=== PATIENT | male | born 1945 | race Caucasian/White ===

== ENCOUNTER → 2017-09-01 | Outpatient (CLI) | payer MEDICARE ==
[~2017-09-01] MED LIST: ALDACTONE 25MG25 M1 PO; ALDACTONE25 MG PO; ALEVE 220MG220 MG PO; AMITRIPTYLINE H25 M1 PO; AMOXICILLIN 8751 TAB PO; APIDRAVL SQ; ASPIRIN E.C. 8181 MG PO; AVAPRO300 M1 PO; CANA100T PO; COREG 25MG25 MG/TAB PO; COREG CR80 MG PO; COUMADIN 1MG1 MG/TAB PO; COUMADIN 6MG6 MG/TAB PO; COUMADIN6 MG PO; COZAAR100 MG PO; DIGITEK0.25 MG PO; GLUCOPHAGE XR500 MG PO; GLUCOPHAGE1000 MG PO; GLUCOTROL 5M5 MG/TAB PO; JANUVIA 100MG100 MG PO; JANUVIA100 MG PO; LEVEMIR SQ; NORCO 325 MG-51 TAB PO; NORCO 325 MG-7.1 TAB PO; ULTRAM100 MG PO
== END ==
LOC: COL.RAD 07:56
DX: I73.9 Peripheral vascular disease, unspecified (principal); Z87.891 Personal history of nicotine dependence

== ENCOUNTER → 2019-06-06 | Outpatient (CLI) | payer MEDICARE | LOC: COL.VAS 08:16 | DX: I08.1 Rheumatic disorders of both mitral and tricuspid valves (principal) ==

== ENCOUNTER 2019-07-05 06:53 | Day surgery (SDC) | payer MEDICARE ==
[~2019-07-05] VITALS: Ht 177.8 cm; Wt 104.2 kg
[2019-07-05] VITALS (17 sets, daily range): BP systolic 117–155; BP diastolic 63–87; PULSE 43–67; TEMP 98
[~2019-07-05 06:53] MED LIST changes: +COUMADIN 5MG5 MG/TAB PO; -COUMADIN 6MG6 MG/TAB PO; -GLUCOTROL 5M5 MG/TAB PO; +GLUCOTROL10 MG PO
[2019-07-05 08:04] LABS: HEMATOCRIT 37.6 % (42.0-52.0); HEMOGLOBIN 12.5 g/dl (13.5-18.0); MEAN CELL VOLUME 95 fl (80.0-100.0); MEAN CORPUSCULAR HEMOGLOBIN 32 pg (27.0-31.0); MEAN CORPUSCULAR HGB CONC 33 g/dl (33.0-37.0); MEAN PLATELET VOLUME 10.3 fl (7.4-10.4); PLATELET COUNT 199 K/mm3 (130-400); RED BLOOD COUNT 3.97 M/mm3 (4.20-5.60); REDCELL DISTRIBUTION WIDTH-CV 14.2 % (11.5-14.5)
[2019-07-05 08:12] LABS: INR 1.3 (0.8-3.0)
[2019-07-05 08:13] LABS: CALCIUM 9.3 mg/dL (8.4-10.2); CREATININE, serum 1.45 (0.66-1.25); POTASSIUM 4.8 mmol/L (3.4-5.0)
[2019-07-05 08:15] LABS: PARTIAL THROMBOPLASTIN TIME 36.5 SECONDS (26.0-37.0)
[2019-07-05] MEDS ORDERED: LIPITOR 10MG10 MG PO (08:28)
[2019-07-05] MEDS ORDERED: JARDIANCE10 PO (08:34)
[2019-07-05] MEDS ORDERED: ALDACTONE 25MG25 M1 PO (08:38)
[2019-07-05] MEDS ORDERED: SEPTRA DS 8001 TAB PO (08:39)
[2019-07-05] MEDS ORDERED: TOUJEO300 U/ML SQ (08:41)
--- NOTE | 2019-07-05 08:51 | NUR ---
Pt to procedure at this time.
--- NOTE | 2019-07-05 09:01 | NUR ---
SEE MERGE DOCUMENTATION FOR MEDICATION ADMINISTRATION TIMES AND INTRA/POST PROCEDURE SEDATION ASSESSMENTS.
--- NOTE | 2019-07-05 11:05 | NUR ---
Heparin drip started at this time.Heparin start cosigned by SKINNY Melara.This nurse called to confirm with CHRISTOPHER Marino if bolus needed.Per Ned,no bolus due to pt getting heparin during procedure.
--- NOTE | 2019-07-05 13:17 | NUR ---
Mar[place]hal, 5/325mg po x 1 dose at this time per pt requst for c/o hip pain.Per pt this is a chronic condition.Family at bedside.
--- NOTE | 2019-07-05 16:26 | NUR ---
Pt discharged via EMS.Report to CRISPIN Sandoval.Report called to Harrison Lomax by this nurse at [phone].
== END 2019-07-05 16:57 | disposition home or self-care (01) ==
LOC: COL.CAR 06:53
PROVIDERS: Internal Medicine Cardiovascular Disease; Nurse Practitioner
DX: I25.10 Atherosclerotic heart disease of native coronary artery without angina pectoris (principal); I48.0 Paroxysmal atrial fibrillation; I35.0 Nonrheumatic aortic (valve) stenosis; I27.20 Pulmonary hypertension, unspecified; E78.5 Hyperlipidemia, unspecified; E11.69 Type 2 diabetes mellitus with other specified complication; B95.7 Other staphylococcus as the cause of diseases classified elsewhere; E11.22 Type 2 diabetes mellitus with diabetic chronic kidney disease; I13.10 Hypertensive heart and chronic kidney disease without heart failure, with stage 1 through stage 4 chronic kidney disease, or unspecified chronic kidney disease; N18.3 Chronic kidney disease, stage 3 (moderate); Z79.01 Long term (current) use of anticoagulants; Z87.891 Personal history of nicotine dependence; Z79.82 Long term (current) use of aspirin; Z79.4 Long term (current) use of insulin
CPT/HCPCS: J1644; J3010; J7030; Q9967

== ENCOUNTER 2019-07-21 09:56 | Inpatient (IN) | payer MEDICARE ==
[~2019-07-21] VITALS: Ht 177.8 cm; Wt 104.2 kg
[~2019-07-21 09:56] MED LIST changes: +JARDIANCE10 PO; +LIPITOR 10MG10 MG PO; +SEPTRA DS 8001 TAB PO; +TOUJEO300 U/ML SQ
[2019-07-21 14:15] VITALS: BP 102/65; PULSE 79; TEMP 98
--- NOTE | 2019-07-21 15:33 | NUR ---
Pt leaving AMA, he and signed form, MARIANNE Schulz assisting with escourting out.
--- NOTE | 2019-07-21 17:47 | NUR ---
Pt arrived in wheelchair to unit, Poonam with pt, obtained weight at scale and this nurse donned gait belt around pt and he took a few steps with mod assist to the bed. Introduced self to pt and , mod assist for pt's legs into bed, turned bed alarm on. Proximal midline chest incision without dressing showing above collar of shirt. Turned bed alarm on, oriented pt and to call lt, tv controlls, and use of alarms on the bed and chair for safety. Asked pt about code status, he deffered to . Pt answered that he has NKDA. Pt stated his pharmacy is [facility] in [place]. OT in to see pt. MARIANNE Schulz obtained initial admission and vitals. Zeus states pt took off shoes and refused to put on gripper socks or don shoes again. Pt sat up on side of bed, setting off alarm, nurse reminded pt not to get up without calling, pt wanted to transfer to chair, went to get pt's seat cushion out of car, set up recliner with blanket, alarm, and cushion. Later, chair alarm going off, pt was attempting to amb to BR without device, was in room bringing walker to pt, this nurse was getting report on this pt from his former nurse at [facility] and cued pt to sit back down, let us help him, pt took ahold of the walker, but when this nurse got near, pt began to push walker away, pt did not have a gait belt on, so this nurse placed hand under pt's left axilla and pt spun around away from nurse, unsteady towards window seat before sitting in recliner. Nurse sat down on window seat next to pt and tried to calmly explain the rehab safety rules. Pt threated nurse if he was not left alone, however, states he is going to have an accident if he does not go to the bathroom. Nurse called to LEONARDA Boyd, walking by in the munoz for assist, Oliver attempted to assist pt with no avail. Claudia Jewelry Manager was called for assistance. Claudia spoke with pt and , concluded that pt would leave AMA and risks were explained to pt and . [facility]. Kemp [facility] and BRIAN Moreland were notified. Pt and signed AMA form. Zeus, RN ORTHO escourted pt out. Daughter returned to cotton picker operator pt's seat cushion.
== END 2019-07-21 15:33 | disposition left against medical advice (07) | DRG 948 ==
PROVIDERS: ADMIT Internal Medicine
DX: R53.81 Other malaise (principal); E87.1 Hypo-osmolality and hyponatremia; L03.116 Cellulitis of left lower limb; I35.0 Nonrheumatic aortic (valve) stenosis; I25.10 Atherosclerotic heart disease of native coronary artery without angina pectoris; I27.20 Pulmonary hypertension, unspecified; I07.1 Rheumatic tricuspid insufficiency; N18.3 Chronic kidney disease, stage 3 (moderate); E11.22 Type 2 diabetes mellitus with diabetic chronic kidney disease; I12.9 Hypertensive chronic kidney disease with stage 1 through stage 4 chronic kidney disease, or unspecified chronic kidney disease; Z95.0 Presence of cardiac pacemaker; Z96.642 Presence of left artificial hip joint; Z79.01 Long term (current) use of anticoagulants

== ENCOUNTER → 2019-07-28 | Outpatient (CLI) | payer MEDICARE ==
[~2019-07-28] VITALS: Ht 177.8 cm; Wt 105.2 kg
[2019-07-28 12:21] VITALS: BP 123/100; PULSE 83
[2019-07-28 12:37] LABS: INR 3.1 (0.8-3.0)
--- NOTE | 2019-07-28 12:49 | NUR ---
Talked with Dr Au and Dr Grossman both radiologists feel his INR is too elevated to proceed with the thoracentesis. Dr's stated that the INR needs to be 2.0 or less to proceed with the elective thoracentesis. This nurse called and left voice mail on Dr David Lords voice mail with nurse Sabrina. Informed Dr Au that I was unable to reach and left voicemail. He stated he would call Dr David Lord and talk with him.
--- NOTE | 2019-07-28 13:00 | NUR ---
Dr Au calls and states pt needs to go get a PT/INR at Dr Hallman office on Wednesday. Informed pt and they need to call Dr Lord office to find out how he wants the coumadin given. To stop completely or take a smaller dose. Pt out to car per wheelchair. Pt assisted into car. Procedure cancelled.
== END ==
LOC: COL.RAD 12:05
PROVIDERS: Radiology Diagnostic Radiology
DX: J90 Pleural effusion, not elsewhere classified (principal)

== ENCOUNTER → 2019-08-04 | Outpatient (CLI) | payer MEDICARE ==
[~2019-08-04] VITALS: Ht 177.8 cm; Wt 105.0 kg
[2019-08-04 13:06] VITALS: BP 115/76; PULSE 80
[2019-08-04 13:36] LABS: INR 1.2 (0.8-3.0); PROTHROMBIN TIME 14.3 SECONDS (9.7-12.8)
[2019-08-04 15:00] VITALS: BP 123/81; PULSE 80
== END ==
LOC: COL.RAD 12:28
PROVIDERS: Radiology Diagnostic Radiology
DX: J90 Pleural effusion, not elsewhere classified (principal)

== ENCOUNTER 2020-05-01 13:29 | Outpatient (RCR) | payer MEDICARE ==
[~2020-05-01] VITALS: Ht 177.8 cm; Wt 92.1 kg
[2020-05-01] VITALS (10 sets, daily range): BP systolic 108–128; BP diastolic 62–86; PULSE 60–68; TEMP 97.8–98.7
[2020-05-01 20:18] LABS: HEMATOCRIT 31.4 % (42.0-52.0); HEMOGLOBIN 9.1 g/dl (13.5-18.0)
== END 2020-05-01 20:30 | disposition home or self-care (01) ==
LOC: EUO 13:29
PROVIDERS: Family Medicine
DX: D64.9 Anemia, unspecified (principal)
CPT/HCPCS: J7050; P9016

== ENCOUNTER → 2020-06-01 | Outpatient (CLI) | payer MEDICARE ==
[2020-06-01 11:30] LABS: INR 2.3 (0.8-3.0); PROTHROMBIN TIME 25.8 SECONDS (9.7-12.8)
== END ==
LOC: COL.RAD 10:52
PROVIDERS: Family Medicine
DX: Z79.01 Long term (current) use of anticoagulants (principal)

== ENCOUNTER → 2020-06-02 | Outpatient (CLI) | payer MEDICARE ==
[2020-06-02 12:21] LABS: INR 1.8 (0.8-3.0); PROTHROMBIN TIME 20.2 SECONDS (9.7-12.8)
== END ==
LOC: COL.LAB 11:48
PROVIDERS: Family Medicine
DX: Z79.01 Long term (current) use of anticoagulants (principal)

== ENCOUNTER 2020-06-26 09:58 | Emergency (ER) | payer MEDICARE ==
[~2020-06-26] VITALS: Ht 177.8 cm; Wt 94.1 kg
[2020-06-26 10:38] LABS: BASO # 0.1 (0.0-0.2); BASO % 0.5 % (0.0-2.0); EOS # 1.5 (0.0-0.7); GRAN # 7.8 (1.4-6.5); GRAN % 62.5 % (42.2-75.2); LYMPH # 1.5 (1.2-3.4); LYMPH % 12.3 % (20.0-51.0); MEAN CELL VOLUME 98 fl (80.0-100.0); MEAN CORPUSCULAR HGB CONC 28 g/dl (33.0-37.0); MEAN PLATELET VOLUME 9.3 fl (7.4-10.4); MONO # 1.5 (0.1-0.6); MONO % 11.9 % (1.7-9.3); PLATELET COUNT 267 K/mm3 (130-400); RED BLOOD COUNT 2.82 M/mm3 (4.20-5.60); REDCELL DISTRIBUTION WIDTH-CV 23.1 % (11.5-14.5)
[2020-06-26 10:51] LABS: HEMATOCRIT 27.7 % (42.0-52.0); HEMOGLOBIN 7.7 g/dl (13.5-18.0); MEAN CORPUSCULAR HEMOGLOBIN 27 pg (27.0-31.0)
[2020-06-26 10:52] LABS: ALANINE AMINOTRANSFERASE 15 U/L (4-49); ALBUMIN 3.5 gm/dL (3.5-5.0); ALKALINE PHOSPHATASE 62 U/L (50-136); ANION GAP 13 mmol/L (7-16); AST,SGOT 22 U/L (15-37); BILIRUBIN,TOTAL 0.7 mg/dL (0.0-1.0); BLOOD UREA NITROGEN 71 mg/dL (9-20); CALCIUM 8.8 mg/dL (8.4-10.2); CHLORIDE 107 mmol/L (98-107); CREATININE, serum 1.98 (0.66-1.25); GLUCOSE 116 mg/dL (74-106); LIPASE 305 U/L (23-300); MAGNESIUM 2.5 mg/dL (1.6-2.3); SODIUM 132 mmol/L (137-145); TOTAL PROTEIN 6.6 gm/dL (6.4-8.2)
[2020-06-26 10:56] LABS: CARBON DIOXIDE 12 mmol/L (22-30); POTASSIUM 6.7 mmol/L (3.4-5.0)
[2020-06-26 10:59] LABS: PARTIAL THROMBOPLASTIN TIME 84.5 SECONDS (26.0-37.0)
[2020-06-26 11:01] LABS: INR 8.6 (0.8-3.0); PROTHROMBIN TIME 98.7 SECONDS (9.7-12.8)
[2020-06-26 11:10] LABS: TROPONIN-I < 0.012 ng/mL (0.000-0.035)
[2020-06-26 11:58] LABS: ARTERIAL BLD GAS O2 SATURATION 95.7 % (92-100); ARTERIAL BLD GAS TCO2 CT 11.8; ARTERIAL BLOOD GAS BASE EXCESS -14.7 (-2-2); ARTERIAL BLOOD GAS PCO2 25.3 mmHg (35-45); ARTERIAL BLOOD GAS PO2 84.2 mmHg (80-100); ARTERIAL BLOOD GAS pH 7.26 (7.35-7.45)
[2020-06-26 12:49] LABS: BASO % 0.3 % (0.0-2.0); EOS # 1.3 (0.0-0.7); EOS % 10.8 % (0-4.0); GRAN # 8.4 (1.4-6.5); GRAN % 68.2 % (42.2-75.2); LYMPH # 1.2 (1.2-3.4); MEAN CELL VOLUME 98 fl (80.0-100.0); MEAN CORPUSCULAR HGB CONC 29 g/dl (33.0-37.0); MEAN PLATELET VOLUME 9.7 fl (7.4-10.4); MONO # 1.2 (0.1-0.6); PLATELET COUNT 228 K/mm3 (130-400); RED BLOOD COUNT 2.46 M/mm3 (4.20-5.60); REDCELL DISTRIBUTION WIDTH-CV 23.3 % (11.5-14.5)
[2020-06-26 12:54] LABS: HEMOGLOBIN 6.9 g/dl (13.5-18.0); MEAN CORPUSCULAR HEMOGLOBIN 28 pg (27.0-31.0)
[2020-06-26 12:59] LABS: CALCIUM 8.1 mg/dL (8.4-10.2); CREATININE, serum 1.83 (0.66-1.25)
[2020-06-26 13:01] LABS: POTASSIUM 6.2 mmol/L (3.4-5.0)
[2020-06-26 14:11] LABS: MUCOUS Present /lpf; PH 5 (5-8); SQUAMOUS EPITHELIAL 0-2 /hpf; URINE APPEARANCE Clear; URINE BACTERIA None Seen /hpf; URINE BILIRUBIN Negative (NEGATIVE); URINE BLOOD Negative (NEGATIVE); URINE COLOR Straw; URINE GLUCOSE 1+ (NEGATIVE); URINE KETONE Negative (NEGATIVE); URINE LEUKOCYTE ESTERASE Negative (NEGATIVE); URINE NITRATE Negative (NEGATIVE); URINE PROTEIN(semi-quant) Negative (NEGATIVE); URINE RBC 0-2 /hpf; URINE UROBILINOGEN Negative (NEGATIVE); URINE WBC 0-2 /hpf
[2020-06-26 14:36] LABS: COLLECTION METHOD CATHETER
[2020-06-26 14:55] VITALS: BP 110/62; PULSE 59; TEMP 97.5
== END 2020-06-26 15:00 | disposition short-term general hospital (02) ==
LOC: COL.ER 09:58
PROVIDERS: Emergency Medicine
DX: D64.9 Anemia, unspecified (principal); E87.5 Hyperkalemia; I99.9 Unspecified disorder of circulatory system; A41.9 Sepsis, unspecified organism; R79.1 Abnormal coagulation profile; E11.22 Type 2 diabetes mellitus with diabetic chronic kidney disease; I12.9 Hypertensive chronic kidney disease with stage 1 through stage 4 chronic kidney disease, or unspecified chronic kidney disease; N18.30 Chronic kidney disease, stage 3 unspecified; Z20.822 Contact with and (suspected) exposure to COVID-19; Z95.0 Presence of cardiac pacemaker; Z79.82 Long term (current) use of aspirin; Z79.01 Long term (current) use of anticoagulants; Z79.4 Long term (current) use of insulin
CPT/HCPCS: C1751; C9113; J0456; J0610; J0692; J1815; J3370; J7030; J7050; J7060; J7120

== ENCOUNTER 2020-07-25 07:24 | Emergency (ER) | payer MEDICARE ==
[~2020-07-25] VITALS: Ht 177.8 cm; Wt 83.0 kg
[~2020-07-25 07:24] MED LIST changes: -JARDIANCE10 PO; +JARDIANCE25 PO; -LIPITOR 10MG10 MG PO; +LIPITOR 40MG TA40 MG PO
[2020-07-25 07:39] VITALS: TEMP 98.6
[2020-07-25 07:52] LABS: BASO # 0.1 (0.0-0.2); BASO % 0.5 % (0.0-2.0); EOS # 0.5 (0.0-0.7); EOS % 3.8 % (0-4.0); GRAN # 10.8 (1.4-6.5); GRAN % 81.5 % (42.2-75.2); HEMATOCRIT 28.5 % (42.0-52.0); HEMOGLOBIN 8.4 g/dl (13.5-18.0); LYMPH % 7.4 % (20.0-51.0); MEAN CELL VOLUME 99 fl (80.0-100.0); MEAN CORPUSCULAR HEMOGLOBIN 29 pg (27.0-31.0); MEAN CORPUSCULAR HGB CONC 30 g/dl (33.0-37.0); MEAN PLATELET VOLUME 8.8 fl (7.4-10.4); MONO # 0.8 (0.1-0.6); MONO % 6.2 % (1.7-9.3); PLATELET COUNT 327 K/mm3 (130-400); RED BLOOD COUNT 2.89 M/mm3 (4.20-5.60); REDCELL DISTRIBUTION WIDTH-CV 21.1 % (11.5-14.5)
[2020-07-25 07:59] LABS: INR 1.1 (0.8-3.0); PROTHROMBIN TIME 12.5 SECONDS (9.7-12.8)
[2020-07-25 08:04] LABS: ALBUMIN 3.3 gm/dL (3.5-5.0); BILIRUBIN,TOTAL 0.5 mg/dL (0.0-1.0); C-REACTIVE PROTEIN 1.7 mg/dL (0.0-0.9); CALCIUM 8.6 mg/dL (8.4-10.2); CREATININE, serum 1.58 (0.66-1.25); POTASSIUM 5.5 mmol/L (3.4-5.0); TOTAL PROTEIN 6.5 gm/dL (6.4-8.2)
[2020-07-25 08:15] VITALS: BP 131/81; PULSE 88
[2020-07-25] MEDS ORDERED: TYLENOL 500MG500 MG PO (10:40)
[2020-07-25] MEDS ORDERED: PROTONIX 40MG T40 MG PO (10:41)
[2020-07-25] MEDS ORDERED: BANOPHEN MAXIMU1 CRE TOP (10:41)
[2020-07-25] MEDS ORDERED: MIRALAX PA17 GM/Dose PO (10:42)
[2020-07-25] MEDS ORDERED: LASIX 80MG TABL80 MG PO (10:45)
[2020-07-25] MEDS ORDERED: K-DUR 10 MEQ T10 MEQ PO (10:47)
[2020-07-25] MEDS ORDERED: XANAX 0.5MG0.5 MG PO (10:48)
[2020-07-25] MEDS ORDERED: DIPROLENE 0.05% TP (10:50)
[2020-07-25] MEDS ORDERED: IRON TABLETS325 MG PO (10:53)
[2020-07-25] MEDS ORDERED: ULTRAM 50MG TAB50 MG PO (10:54)
[2020-07-25] MEDS ORDERED: BACTROBAN 22GM22 GM NAS (10:54)
[2020-07-25] MEDS ORDERED: DESYREL 50MG50 MG PO (10:55)
== END 2020-07-25 08:50 | disposition short-term general hospital (02) ==
LOC: COL.ER 07:24
PROVIDERS: Family Medicine
DX: I62.00 Nontraumatic subdural hemorrhage, unspecified (principal); I11.0 Hypertensive heart disease with heart failure; I48.91 Unspecified atrial fibrillation; E11.9 Type 2 diabetes mellitus without complications; Z79.82 Long term (current) use of aspirin; Z79.4 Long term (current) use of insulin; Z79.01 Long term (current) use of anticoagulants; Z20.822 Contact with and (suspected) exposure to COVID-19
CPT/HCPCS: J1953; J3430